=== PATIENT | female | born 1965 | race Caucasian/White ===

== ENCOUNTER 2017-09-19 18:41 | Observation (INO) | payer OTHER ==
[2017-09-19] MEDS ORDERED: SODIUM CHLORIDE 0.9% 1,000 ML IV STA (19:16)
[2017-09-19] MEDS ORDERED: NITROGLYCERIN SL TABS 0.4 MG TAB SUBLINGUAL STA (19:16)
[2017-09-19] MEDS ORDERED: MORPHINE SULFATE 2 MG/ML SYRINGE IVP STA (19:16)
[2017-09-19] MEDS ORDERED: ASPIRIN 81 MG PO STA (19:16)
[2017-09-19 19:43] LABS: Basophils % (A) 1 %; Eosinophils # (A) 0.4 k/uL (0-0.7); Eosinophils % (A) 7 %; HCT 36.1 % (34.0-46.0); HGB 11.5 gm/dL (11.4-16.0); Hypochromasia Slight; Lymphocytes # (A) 2.1 k/uL (1.0-4.8); Lymphocytes % (A) 34 %; MCHC 31.8 g/dL (31.0-37.0); MCV 85.2 fL (80.0-100.0); Monocytes # (A) 0.4 k/uL (0-1.0); Monocytes % (A) 7 %; Neutrophils % (A) 48 %; Platelet Count 224 k/uL (150-450); RBC 4.24 m/uL (3.80-5.40); RDW 15.6 % (11.5-15.5); WBC 6.2 k/uL (3.8-10.6)
[2017-09-19 19:44] LABS: Partial Thromboplastin Time 22.9 sec (22.0-30.0); Prothrombin Time 9.5 sec (9.0-12.0)
[2017-09-19 19:47] LABS: Albumin 3.4 g/dL (3.5-5.0); Calcium 8.8 mg/dL (8.4-10.2); Magnesium 1.7 mg/dL (1.6-2.3); Potassium 3.9 mmol/L (3.5-5.1); Total Bilirubin 0.2 mg/dL (0.2-1.3); Total Protein 5.7 g/dL (6.3-8.2)
[2017-09-19 19:53] LABS: Creatine Kinase 44 U/L (30-135)
--- NOTE | 2017-09-19 20:01 | XR ---
EXAMINATION: XR chest 2V DATE AND TIME: 09/19/2017 7:54 PM ORDERING PROVIDER: Veronica Robison MD CLINICAL INDICATION: Chest Pain TECHNIQUE: PA and lateral COMPARISON: None. DESCRIPTION: The lungs are clear. The pleural spaces are negative. The cardiac silhouette is not enlarged. The mediastinal and pleural silhouettes are unremarkable. The skeletal structures are intact without focal findings. The soft tissues are unremarkable. IMPRESSION: NO ACUTE PROCESS.
[2017-09-19 20:06] LABS: Creatine Kinase MB <0.2 ng/mL (0.0-2.4); Troponin I <0.012 ng/mL (0.000-0.034)
[2017-09-19] MEDS ORDERED: NITROGLYCERIN SL TABS 0.4 MG TAB SUBLINGUAL PRN (21:38)
[2017-09-19] MEDS ORDERED: MORPHINE SULFATE 2 MG/ML SYRINGE IVP PRN (21:38)
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
[2017-09-19] MEDS ORDERED: ALBUTEROL NEBULIZED 2.5 MG/3 ML INHALATION PRN (21:40)
[2017-09-19 22:15] VITALS: BMI 33.3
[2017-09-19] MEDS: HYDROcodone/APAP 10-325MG 1 EACH TAB PO SCH (22:26)
[2017-09-20 03:14] LABS: Creatine Kinase 39 U/L (30-135)
[2017-09-20 03:25] LABS: Creatine Kinase MB <0.2 ng/mL (0.0-2.4); Troponin I <0.012 ng/mL (0.000-0.034)
[2017-09-20 07:22] LABS: Cholesterol 192 mg/dL (<200); HDL Cholesterol 28 mg/dL (40-60); LDL Cholesterol,Calculated 101 mg/dL (0-99); Triglycerides 314 mg/dL (<150)
[2017-09-20 07:23] LABS: Creatine Kinase 35 U/L (30-135)
[2017-09-20] MEDS ORDERED: PANTOPRAZOLE 40 MG TABLET PO SCH (07:30)
[2017-09-20 07:35] LABS: Creatine Kinase MB <0.2 ng/mL (0.0-2.4); Troponin I <0.012 ng/mL (0.000-0.034)
[2017-09-20] MEDS ORDERED: METOPROLOL TARTRATE 50 MG TAB PO SCH (09:00)
[2017-09-20] MEDS ORDERED: FLUTICASONE 50MCG/SPRAY NASAL 16GM EA NOSTRIL SCH (09:00)
[2017-09-20] MEDS ORDERED: LORATADINE 10 MG TAB PO SCH (09:00)
[2017-09-20] MEDS ORDERED: ASPIRIN 325 MG TAB PO SCH (09:00)
[2017-09-20] MEDS ORDERED: TOPIRAMATE 100 MG TAB PO SCH (09:00)
[2017-09-20] MEDS ORDERED: VERAPAMIL SR 180 MG TABLET.ER PO SCH (09:00)
--- NOTE | 2017-09-20 10:48 | ECHOF ---
Referral Reason:chest pain MEASUREMENTS -------- HEIGHT: 165.1 cm WEIGHT: 90.3 kg BP: 90/50 RVIDd: 3.4 cm (< 3.3) IVSd: 1.1 cm (0.6 - 1.1) LVIDd: 4.4 cm (3.9 - 5.3) LVPWd: 1.1 cm (0.6 - 1.1) IVSs: 1.5 cm LVIDs: 2.8 cm LVPWs: 1.7 cm LA Diam: 3.6 cm (2.7 - 3.8) LAESV Index (A-L): 22.42 ml/m Ao Diam: 3.0 cm (2.0 - 3.7) AV Cusp: 2.2 cm (1.5 - 2.6) EPSS: 0.5 cm MV E You: 0.82 m/s MV DecT: 210 ms MV A You: 0.57 m/s MV E/A Ratio: 1.43 RAP: 5.00 mmHg RVSP: 17.02 mmHg MV EF SLOPE: 97.15 mm/s (70 - 150) MV EXCURSION: 1.73 cm (> 18.000) FINDINGS -------- Sinus rhythm. This was a technically good study. The left ventricular size is normal. Left ventricular wall thickness is normal. Overall left vent ricular systolic function is normal with, an EF between 60 - 65 %. The right ventricle is mildly enlarged. Normal LA size by volume 22+/-6 ml/m2. The right atrium is normal in size. The aortic valve is trileaflet and appears structurally normal. Mild mitral annular calcification present. Trace tricuspid regurgitation present. Right ventricular systolic pressure is normal at < 35 mmHg. Trace/mild (physiologic) pulmonic regurgitation. The aortic root size is normal. Normal inferior vena cava with normal inspiratory collapse consistent with estimated right atrial pre ssure of 5 mmHg. There is no pericardial effusion. CONCLUSIONS -------- 1. Sinus rhythm. 2. This was a technically good study. 3. The left ventricular size is normal. 4. Left ventricular wall thickness is normal. 5. Overall left ventricular systolic function is normal with, an EF between 60 - 65 %. 6. The right ventricle is mildly enlarged. 7. Normal LA size by volume 22+/-6 ml/m2. 8. The right atrium is normal in size. 9. The aortic valve is trileaflet and appears structurally normal. 10. Mild mitral annular calcification present. 11. Trace tricuspid regurgitation present. 12. Right ventricular systolic pressure is normal at < 35 mmHg. 13. Trace/mild (physiologic) pulmonic regurgitation. 14. The aortic root size is normal. 15. Normal inferior vena cava with normal inspiratory collapse consistent with estimated right atrial pressure of 5 mmHg. 16. There is no pericardial effusion. MECHANICAL TEST ENGINEER: BENITA Naik
[2017-09-20] MEDS: HYDROcodone/APAP 10-325MG 1 EACH TAB PO SCH ×2 (11:16→12:51)
--- NOTE | 2017-09-20 11:36 | CONS ---
CONSULTATION Mrs. Briana Hubbard is a 52-year-old lady with multiple cardiac issues. She came into the hospital, was seen in the emergency room by Veronica Langley. She has history of hypertension, COPD, came in with chest pain in the midsternal area without specific radiation and no specific relationship to physical activity. The pain persisted was quite intense, but it is now gone. She has a history of paroxysmal SVT, hypertension, bronchial asthma, gastroesophageal reflux disease, and sees a die try out worker by name Davy Cheema in the [facility] area. She is asymptomatic at the time of my evaluation. PAST MEDICAL HISTORY: 1. PSVT on verapamil and beta rizwan. 2. Hypertension. 3. Bronchial asthma. 4. Osteoarthritis, for which she takes [place]. MEDICATIONS: Medications at home include Flonase, topiramate, omeprazole, verapamil SR 360 mg daily, Lopressor 50 mg b.i.d., albuterol inhaler, [place] for pain. ALLERGIES: None. REVIEW OF SYSTEMS: Unremarkable other than above-mentioned facts. PHYSICAL EXAMINATION: On examination, blood pressure is 110/70, pulse rate is 70 per minute, regular. HEENT: Unremarkable. Fundus was not examined by me. Neck is supple. No JVD. I do not hear a carotid bruit. There is no thyromegaly. Heart exam reveals S1, S2 heard normally in all areas without rub, murmur or gallop. Lungs are clear. Abdomen is soft, nontender. Lower extremities reveal normal pulses. No edema. Central nervous system is normal. EKG revealed sinus mechanism, no acute changes. LABORATORY DATA: Laboratory data reveals unremarkable troponins. IMPRESSION: 1. Atypical chest pain. 2. History of paroxysmal supraventricular tachycardia. 3. Hypertension. 4. Bronchial asthma. 5. Osteoarthritis. RECOMMENDATION: I am recommending a stress echo and if this is normal she can be discharged and follow up with her die try out worker in the [facility] area. She has history of SVT. She is already on a combination of verapamil and beta rizwan, seems to be tolerating this and we will continue this medication for now. Thank you very much for the consult. MMODL / IJN: [id number] /
[2017-09-20 11:44] VITALS: BP 102/67; PULSE 87; RESP 18; TEMP 98.3
--- NOTE | 2017-09-20 14:24 | EST ---
EXERCISE STRESS DATE OF SERVICE: AGE: 52 SEX: F HT: 65 WT: 199 PROTOCOL: Stress echo. STAGE: II DURATION OF EXERCISE: 6:15 HEART RATE REST: 86 BLOOD PRESSURE REST: 161/104 MAXIMUM HEART RATE ACHIEVED: 144 MAXIMUM BLOOD PRESSURE: 177/69 85% MPHR: 143 100% MPHR: 168 METS: 5.8 INDICATIONS: CP CLINICAL INFORMATION: Baseline EKG revealed normal sinus rhythm without significant ST-T changes. Patient walked for 6 minutes 15 seconds achieved a maximal heart rate of 145 beats per minute which is more than 85% of predicted maximal. She developed fatigue and shortness of breath but did not have any angina or arrhythmia. EKG did not reveal any ST-segment changes to indicate ischemia. There was a lot of baseline artifact noted. By EKG criteria, this is a negative stress test with limited exercise capacity. Baseline echo images revealed normal wall motion and wall thickening of all segments. At peak exercise there was good augmentation of Doppler and wall motion and wall thickening of all segments suggesting that there is no evidence of stress-induced ischemia on this study. IMPRESSION: 1. Limited exercise capacity with a negative stress test by EKG criteria. 2. Normal stress echocardiogram. MMODL / IJN: [id number] /
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
--- NOTE | 2017-09-20 14:58 | P.DS ---
Providers Date of admission: 09/19/17 21:38 Attending physician: Mau Morgan Consults: 09/19/17 21:38 Consult Physician Urgent Consulting Provider: John Fleming Consult Reason/Comments: Chest pain Do you want consulting provider notified?: Yes Primary care physician: Davy Cody [place] [facility] Course: Please refer to my HPI Patient Condition at Discharge: Good Plan - Discharge Summary New Discharge Prescriptions: No Action HYDROcodone/APAP 10-325MG [[place] 10-325] 1 tab PO QID Omeprazole [PriLOSEC] 40 mg PO DAILY Cetirizine HCl [Zyrtec] 10 mg PO DAILY Albuterol Inhaler [Ventolin Hfa Inhaler] 1 - 2 puff INHALATION RT-Q6H PRN PRN Reason: ASTHMA SX Metoprolol Tartrate [Lopressor] 50 mg PO BID Topiramate [Topamax] 100 mg PO BID Verapamil HCl 360 mg PO DAILY Fluticasone Nasal [place] [Flonase Nasal [place]] 2 spray EA NOSTRIL BID Discharge Medication List Albuterol Inhaler [Ventolin Hfa Inhaler] 1 - 2 puff INHALATION RT-Q6H PRN [History] Cetirizine HCl [Zyrtec] 10 mg PO DAILY 10/11/15 [History] HYDROcodone/APAP 10-325MG [[place] 10-325] 1 tab PO QID 10/11/15 [History] Metoprolol Tartrate [Lopressor] 50 mg PO BID 10/11/15 [History] Omeprazole [PriLOSEC] 40 mg PO DAILY 10/11/15 [History] Topiramate [Topamax] 100 mg PO BID 10/11/15 [History] Fluticasone Nasal [place] [Flonase Nasal [place]] 2 spray EA NOSTRIL BID 09/19/17 [ History] Verapamil HCl 360 mg PO DAILY 09/19/17 [History] Follow up Appointment(s)/Referral(s): Davy Cody DO [Primary Care Provider] - 3 Days Patient Instructions/Handouts: Chest Pain (DC) Discharge Disposition: HOME SELF-CARE
== END 2017-09-20 14:27 | disposition home or self-care (01) ==
LOC: EC 18:41 → 3OBS 21:38
PROVIDERS: ADMIT Hospitalist; ATTEND Hospitalist
DX: R07.89 Other chest pain (principal); I47.1 Supraventricular tachycardia; J44.9 Chronic obstructive pulmonary disease, unspecified; I10 Essential (primary) hypertension; M19.90 Unspecified osteoarthritis, unspecified site; F41.9 Anxiety disorder, unspecified; F32.9 Major depressive disorder, single episode, unspecified; M79.7 Fibromyalgia; K21.9 Gastro-esophageal reflux disease without esophagitis; K92.2 Gastrointestinal hemorrhage, unspecified; Z87.891 Personal history of nicotine dependence; Z87.19 Personal history of other diseases of the digestive system; K58.9 Irritable bowel syndrome, unspecified; Z79.891 Long term (current) use of opiate analgesic; Z79.51 Long term (current) use of inhaled steroids; Z79.899 Other long term (current) drug therapy; Z82.49 Family history of ischemic heart disease and other diseases of the circulatory system; Z80.49 Family history of malignant neoplasm of other genital organs; Z80.3 Family history of malignant neoplasm of breast; Z80.8 Family history of malignant neoplasm of other organs or systems
CPT/HCPCS: 99285 ×2; 96374 ×2; 96361 ×3; 36415; 94640; 93306; 93351; 80061; 80053; 82550 ×2; 82553 ×2; 83735; 84484 ×2; 85025; 85610; 85730; 71046; G0378 ×2; J2270

== ENCOUNTER → 2017-09-25 | Outpatient (CLI) | payer OTHER ==
--- NOTE | 2017-09-25 19:01 | US ---
EXAMINATION TYPE: US venous doppler duplex LE RT DATE OF EXAM: 09/25/2017 6:52 PM COMPARISON: NONE CLINICAL HISTORY: R60.9 edema, unspecified. Edema SIDE PERFORMED: Right TECHNIQUE: The lower extremity deep venous system is examined utilizing real time linear array sonog vani with graded compression, doppler sonography and color-flow sonography. VESSELS IMAGED: External Iliac Vein (EIV) Common Femoral Vein Deep Femoral Vein Greater Saphenous Vein * Femoral Vein Popliteal Vein Small Saphenous Vein * Proximal Calf Veins (* superficial vessels) Right Leg: Negative for DVT No evidence of DVT right leg. IMPRESSION: Normal exam. No evidence of deep venous thrombosis in the right leg.
== END | disposition home or self-care (01) ==
LOC: RADUSMAIN 18:35
PROVIDERS: ATTEND Physician Assistant
DX: R60.9 Edema, unspecified (principal)